=== PATIENT | female | born 1980 | race Caucasian/White ===

== ENCOUNTER 2018-07-24 14:07 | Emergency (ER) | payer MEDICAID, SELFPAY ==
[2018-07-24 14:11] VITALS: BP 142/91; PULSE 94; RESP 20; TEMP 36.2; O2SAT 100; BMI 32.2
--- NOTE | 2018-07-24 14:19 | DI.RAD.S_ITS ---
PROCEDURE: XR CHEST 1V INDICATIONS: chest pain TECHNIQUE: One view of the chest was acquired. COMPARISON: None. FINDINGS: Surgical changes and devices: None. Lungs and pleura: Lungs are clear. No pleural effusions or pneumothorax. Mediastinum: Mediastinal contours appear normal. Heart size is normal. Bones and chest wall: No suspicious bony lesions. Overlying soft tissues appear unremarkable. IMPRESSION: No acute disease. There are no imaging findings to explain patient's chest pain. Dictated by: Vic Chan M.D. on 07/24/2018 14:40 Approved by: Vic Chan M.D. on 07/24/2018 at 14:43
--- NOTE | 2018-07-24 14:28 | ED.CHESTPAIN ---
HPI - Chest Pain <Mayda Aguirre PA-C - Last Filed: 07/24/18 19:40> General Chief Complaint: Chest Pain Stated Complaint: pain in left side of chest and down arm Time Seen by Provider: 07/24/18 14:28 Source: patient Mode of arrival: ambulatory Limitations: no limitations History of Present Illness HPI narrative: This 38-year-old female comes to ED secondary to persistent left-sided chest and shoulder pain that started almost 20 hours ago. She states initially she thought this was acid reflux as she has that very frequently and is on Prilosec. She states that she took a warm bath which helped a little, but then got worse again around midnight despite taking her omeprazole. She states that pain is constant, at a low level if she is not lying on her left side, much worse lying on the left side. The pain is better lying flat or on her right side, sitting up or in any other position besides on her left side. It is not affected by walking. She states right now sitting up pain is mild, feels it more in her shoulder blade. She states that a couple of times last night she had some tingling and radiation of the pain into her left arm which resolved after she sat up. She states that she has chronic left neck and shoulder pain for about 6 years the, no specific source was found for that, states she was being evaluated for fibromyalgia when she lost her insurance. She denies any new trauma. She denies any pain or tingling in her arm or jaw currently. She denies any palpitations or dyspnea. She states that she has not had any recent illness or fever, but has been bringing up some solid postnasal drip in the morning with cough for the last couple of weeks. She states that she always has some upset stomach/nausea with her reflux and that is not changed today. She has not had any new vomiting. She has not had any pain or swelling in her extremities today, rashes, or other new symptoms on systems review. No family history of blood clots. She denies possibility of (abstinent) Related Data Home Medications Medication Instructions Recorded Confirmed omeprazole 07/24/18 Previous Rx's Medication Instructions Recorded cyclobenzaprine 10 mg PO TID #10 tab 07/24/18 lidocaine [Lidoderm] 2 patch TOP DAILY #30 each 07/24/18 meloxicam 15 mg PO DAILY #10 tab 07/24/18 Allergies Allergy/AdvReac Type Severity Reaction Status Date / Time Penicillins Allergy Severe Difficulty Verified 07/24/18 16:04 Breathing SULFA Allergy Intermediate hives Uncoded 07/18/17 12:24 Review of Systems <Mayda Aguirre PA-C - Last Filed: 07/24/18 19:40> Review of Systems ROS Unobtainable: All systems reviewed & are unremarkable except as noted in HPI and below PFSH <Mayda Aguirre PA-C - Last Filed: 07/24/18 19:40> Medical History (Updated 07/24/18 @ 17:17 by Mayda Aguirre PA-C) Chronic neck and back pain (Chronic) GERD (gastroesophageal reflux disease) (Chronic) Surgical History (Updated 07/24/18 @ 14:49 by Mayda Aguirre PA-C) H/O colonoscopy with polypectomy (Resolved) Family History (Updated 07/24/18 @ 14:49 by Mayda Aguirre PA-C) Mother Congestive heart failure Diabetes mellitus Social History Smoking Status: Former smoker Family History (Updated 07/24/18 @ 14:49 by Mayda Aguirre PA-C) Mother Congestive heart failure Diabetes mellitus Social History Smoking Status: Former smoker Exam <Mayda Aguirre PA-C - Last Filed: 07/24/18 19:40> Narrative Exam Narrative: GENERAL APPEARANCE: Patient sitting comfortably, in no distress. HEENT: PERRL, EOMI NECK/THYROID: Neck supple, no JVD. LUNGS: Clear to auscultation bilaterally. CHEST: TTP over L. lateral ribs/axilla HEART: Regular rate and rhythm without murmur, normal S1, S2, no S3 or S4. ABDOMEN: Soft, NT, ND, + BS x 4 quadrants EXTREMITIES: No cyanosis or edema. No calf tenderness NEUROLOGIC: Alert and oriented, normal speech and coordination. DERM: No exanthem MUSCULOSKELETAL: No point tenderness over the cervical or thoracic spine. Tender over the left-sided neck paraspinal musculature, trapezius and left ribs. Moderate tenderness with shoulder range of motion Initial Vital Signs Initial Vital Signs: Vital Signs Temperature 97.1 F L 07/24/18 14:11 Pulse Rate 94 H 07/24/18 14:11 Respiratory Rate 20 07/24/18 14:11 Blood Pressure 142/91 H 07/24/18 14:11 Pulse Oximetry 100 07/24/18 14:11 <Shala Roberts DO - Last Filed: 07/25/18 08:58> Initial Vital Signs Initial Vital Signs: Vital Signs Temperature 97.1 F L 07/24/18 14:11 Pulse Rate 94 H 07/24/18 14:11 Respiratory Rate 20 07/24/18 14:11 Blood Pressure 142/91 H 07/24/18 14:11 Pulse Oximetry 100 07/24/18 14:11 Course <Mayda Aguirre PA-C - Last Filed: 07/24/18 19:40> Additional Information: The patient is feeling significantly improved after medications. Suspect her pain is musculoskeletal. She agreed to return if she has acutely worsening symptoms, otherwise will follow up with her PCP this week as she has significant chronic pain and severe reflux Orders Ordered: Discontinued Medications Al Hydrox/Mg Hydrox/Simethicone 20 ml/ Lidocaine HCl 15 ml 0 ml PO NOW ONE Stop: 07/24/18 16:00 Last Admin: 07/24/18 16:16 Dose: 30 ml Ketorolac Tromethamine (Toradol) 30 mg IV NOW ONE Stop: 07/24/18 16:00 Last Admin: 07/24/18 16:16 Dose: 30 mg Ondansetron HCl (Zofran) 4 mg IV NOW ONE Stop: 07/24/18 16:00 Last Admin: 07/24/18 16:16 Dose: 4 mg Vital Signs - 8 hr 07/24/18 14:11 07/24/18 15:00 07/24/18 16:32 Temperature 97.1 F L Pulse Rate 94 H 101 H 77 Respiratory Rate 20 13 23 Blood Pressure 142/91 H Blood Pressure [Left Arm] 149/91 H 127/86 Pulse Oximetry 100 100 98 07/24/18 17:00 Temperature Pulse Rate 82 Respiratory Rate 21 Blood Pressure Blood Pressure [Left Arm] 131/86 Pulse Oximetry 97 <Shala Roberts DO - Last Filed: 07/25/18 08:58> Orders Ordered: Discontinued Medications Al Hydrox/Mg Hydrox/Simethicone 20 ml/ Lidocaine HCl 15 ml 0 ml PO NOW ONE Stop: 07/24/18 16:00 Last Admin: 07/24/18 16:16 Dose: 30 ml Ketorolac Tromethamine (Toradol) 30 mg IV NOW ONE Stop: 07/24/18 16:00 Last Admin: 07/24/18 16:16 Dose: 30 mg Ondansetron HCl (Zofran) 4 mg IV NOW ONE Stop: 07/24/18 16:00 Last Admin: 07/24/18 16:16 Dose: 4 mg Vital Signs - 8 hr 07/24/18 14:11 07/24/18 15:00 07/24/18 16:32 Temperature 97.1 F L Pulse Rate 94 H 101 H 77 Respiratory Rate 20 13 23 Blood Pressure 142/91 H Blood Pressure [Left Arm] 149/91 H 127/86 Pulse Oximetry 100 100 98 07/24/18 17:00 Temperature Pulse Rate 82 Respiratory Rate 21 Blood Pressure Blood Pressure [Left Arm] 131/86 Pulse Oximetry 97 MDM - Chest Pain <Mayda Aguirre PA-C - Last Filed: 07/24/18 19:40> Lab Data Result diagrams: 07/24/18 15:20 07/24/18 15:20 Lab Results 07/24/18 07/24/18 07/24/18 Range/Units 15:20 15:20 15:20 WBC 11.6 H (4.5-11.0) X10^3/uL RBC 5.29 H (4.0-5.2) X10^6/uL Hgb 15.4 (12.0-16.0) g/dL Hct 46.6 H (36-46) % MCV 88.0 (80-100) fL MCH 29.1 (26-34) PG MCHC 33.0 (30-36) % RDW 12.9 (11.6-14.8) % Plt Count 273 (150-400) X10^3/uL Neut % (Auto) 83.5 H (50-75) % Lymph % (Auto) 10.6 L (25-40) % Kimball % (Auto) 4.4 (3-14) % Eos % (Auto) 0.6 L (2-4) % Baso % (Auto) 0.9 (0-2) % Neut # (Auto) 9700 H (9763-9322) /uL Lymph # (Auto) 1200 (7283-5864) /uL Kimball # (Auto) 500 (0-900) /uL Eos # (Auto) 100 (0-450) /uL Baso # (Auto) 100 (0-100) /uL PT 11.5 (10.1-12.7) SECONDS INR 1.0 (0.9-1.3) APTT 34 (26.4-36.2) SECONDS Sodium 140 (137-145) mmol/L Potassium 4.0 (3.4-5.1) mmol/L Chloride 106 (98-107) mmol/L Carbon Dioxide 22 (22-32) mmol/L BUN 7 (7-17) mg/dL Creatinine 0.60 (0.52-1.04) mg/dL Estimated GFR > 60.0 (>60) mL/min BUN/Creatinine Ratio 11.7 (6-22) Glucose 120 H (70-100) mg/dL Calcium 9.9 (8.4-10.2) mg/dL Total Bilirubin 0.3 (0.2-1.3) mg/dL AST 19 (14-36) IU/L ALT 21 (9-52) IU/L Alkaline Phosphatase 78 (38-126) U/L Total Creatine Kinase 49 (30-135) U/L CK-MB (CK-2) TNP CK-MB (CK-2) Rel Index TNP Troponin I < 0.012 (0.01-0.034) ng/mL Total Protein 8.4 H (6.3-8.2) g/dL Albumin 5.1 H (3.5-5.0) g/dL Globulin 3.3 (1.7-4.1) g/dL Albumin/Globulin Ratio 1.5 (1.0-2.8) Lipase 59 (23-300) U/L Urine RBC (0-5/HPF) Urine WBC (0-5/HPF) Ur Squamous Epith Cells (0-5/HPF) Urine Bacteria (None) Ur Culture Indicated? 07/24/18 Range/Units 15:30 WBC (4.5-11.0) X10^3/uL RBC (4.0-5.2) X10^6/uL Hgb (12.0-16.0) g/dL Hct (36-46) % MCV (80-100) fL MCH (26-34) PG MCHC (30-36) % RDW (11.6-14.8) % Plt Count (150-400) X10^3/uL Neut % (Auto) (50-75) % Lymph % (Auto) (25-40) % Kimball % (Auto) (3-14) % Eos % (Auto) (2-4) % Baso % (Auto) (0-2) % Neut # (Auto) (7997-1532) /uL Lymph # (Auto) (2075-4720) /uL Kimball # (Auto) (0-900) /uL Eos # (Auto) (0-450) /uL Baso # (Auto) (0-100) /uL PT (10.1-12.7) SECONDS INR (0.9-1.3) APTT (26.4-36.2) SECONDS Sodium (137-145) mmol/L Potassium (3.4-5.1) mmol/L Chloride (98-107) mmol/L Carbon Dioxide (22-32) mmol/L BUN (7-17) mg/dL Creatinine (0.52-1.04) mg/dL Estimated GFR (>60) mL/min BUN/Creatinine Ratio (6-22) Glucose (70-100) mg/dL Calcium (8.4-10.2) mg/dL Total Bilirubin (0.2-1.3) mg/dL AST (14-36) IU/L ALT (9-52) IU/L Alkaline Phosphatase (38-126) U/L Total Creatine Kinase (30-135) U/L CK-MB (CK-2) CK-MB (CK-2) Rel Index Troponin I (0.01-0.034) ng/mL Total Protein (6.3-8.2) g/dL Albumin (3.5-5.0) g/dL Globulin (1.7-4.1) g/dL Albumin/Globulin Ratio (1.0-2.8) Lipase (23-300) U/L Urine RBC 0-1/hpf (0-5/HPF) Urine WBC 1-5/hpf (0-5/HPF) Ur Squamous Epith Cells 1-5 /hpf (0-5/HPF) Urine Bacteria Occasional (0-1) (None) Ur Culture Indicated? Specimen cultured Point of Care Testing Test Results Negative Urine Dip Bedside Urine Glucose Negative Bedside Urine Bilirubin - Negative Bedside Urine Ketone ++ 40 Urine Specific Tomball 1.015 Bedside Urine Occult Blood - Negative Bedside Urine pH 8.5 Bedside Urine Protein - Negative Bedside Urine Urobilinogen - Negative Bedside Urine Nitrite - Negative Bedside Urine Leukocytes ++ 125 Esterase Imaging Data Chest x-ray: Radiologist's impression: [address] [id number] XRay Report Signed Patient: Gabby Flores LMR#: [id number] : 1980Acct:[id number] Age/Sex: 38 / FDate of Service: 07/24/18 Loc: ED Accession Number: [id number] Procedure: XR chest 1V Ordering Provider: Shaal Roberts D.O. PROCEDURE: XR CHEST 1V INDICATIONS: chest pain TECHNIQUE: One view of the chest was acquired. COMPARISON: None. FINDINGS: Surgical changes and devices: None. Lungs and pleura: Lungs are clear. No pleural effusions or pneumothorax. Mediastinum: Mediastinal contours appear normal. Heart size is normal. Bones and chest wall: No suspicious bony lesions. Overlying soft tissues appear unremarkable. IMPRESSION: No acute disease. There are no imaging findings to explain patient's chest pain. Dictated by: Vic Chan M.D. on 07/24/2018 14:40 Approved by: Vic Chan M.D. on 07/24/2018 at 14:43 ECG Data Attestation: I personally reviewed and interpreted this ECG as follows: (Sinus rhythm, rate 95, DC 0.11, normal axis) <Shala Roberts DO - Last Filed: 07/25/18 08:58> Lab Data Attestation: I reviewed the patient's lab results. Lab Results 07/24/18 07/24/18 07/24/18 Range/Units 15:20 15:20 15:20 WBC 11.6 H (4.5-11.0) X10^3/uL RBC 5.29 H (4.0-5.2) X10^6/uL Hgb 15.4 (12.0-16.0) g/dL Hct 46.6 H (36-46) % MCV 88.0 (80-100) fL MCH 29.1 (26-34) PG MCHC 33.0 (30-36) % RDW 12.9 (11.6-14.8) % Plt Count 273 (150-400) X10^3/uL Neut % (Auto) 83.5 H (50-75) % Lymph % (Auto) 10.6 L (25-40) % Kimball % (Auto) 4.4 (3-14) % Eos % (Auto) 0.6 L (2-4) % Baso % (Auto) 0.9 (0-2) % Neut # (Auto) 9700 H (6725-0073) /uL Lymph # (Auto) 1200 (7671-5909) /uL Kimball # (Auto) 500 (0-900) /uL Eos # (Auto) 100 (0-450) /uL Baso # (Auto) 100 (0-100) /uL PT 11.5 (10.1-12.7) SECONDS INR 1.0 (0.9-1.3) APTT 34 (26.4-36.2) SECONDS Sodium 140 (137-145) mmol/L Potassium 4.0 (3.4-5.1) mmol/L Chloride 106 (98-107) mmol/L Carbon Dioxide 22 (22-32) mmol/L BUN 7 (7-17) mg/dL Creatinine 0.60 (0.52-1.04) mg/dL Estimated GFR > 60.0 (>60) mL/min BUN/Creatinine Ratio 11.7 (6-22) Glucose 120 H (70-100) mg/dL Calcium 9.9 (8.4-10.2) mg/dL Total Bilirubin 0.3 (0.2-1.3) mg/dL AST 19 (14-36) IU/L ALT 21 (9-52) IU/L Alkaline Phosphatase 78 (38-126) U/L Total Creatine Kinase 49 (30-135) U/L CK-MB (CK-2) TNP CK-MB (CK-2) Rel Index TNP Troponin I < 0.012 (0.01-0.034) ng/mL Total Protein 8.4 H (6.3-8.2) g/dL Albumin 5.1 H (3.5-5.0) g/dL Globulin 3.3 (1.7-4.1) g/dL Albumin/Globulin Ratio 1.5 (1.0-2.8) Lipase 59 (23-300) U/L Urine RBC (0-5/HPF) Urine WBC (0-5/HPF) Ur Squamous Epith Cells (0-5/HPF) Urine Bacteria (None) Ur Culture Indicated? 07/24/18 Range/Units 15:30 WBC (4.5-11.0) X10^3/uL RBC (4.0-5.2) X10^6/uL Hgb (12.0-16.0) g/dL Hct (36-46) % MCV (80-100) fL MCH (26-34) PG MCHC (30-36) % RDW (11.6-14.8) % Plt Count (150-400) X10^3/uL Neut % (Auto) (50-75) % Lymph % (Auto) (25-40) % Kimball % (Auto) (3-14) % Eos % (Auto) (2-4) % Baso % (Auto) (0-2) % Neut # (Auto) (6983-5863) /uL Lymph # (Auto) (0240-0746) /uL Kimball # (Auto) (0-900) /uL Eos # (Auto) (0-450) /uL Baso # (Auto) (0-100) /uL PT (10.1-12.7) SECONDS INR (0.9-1.3) APTT (26.4-36.2) SECONDS Sodium (137-145) mmol/L Potassium (3.4-5.1) mmol/L Chloride (98-107) mmol/L Carbon Dioxide (22-32) mmol/L BUN (7-17) mg/dL Creatinine (0.52-1.04) mg/dL Estimated GFR (>60) mL/min BUN/Creatinine Ratio (6-22) Glucose (70-100) mg/dL Calcium (8.4-10.2) mg/dL Total Bilirubin (0.2-1.3) mg/dL AST (14-36) IU/L ALT (9-52) IU/L Alkaline Phosphatase (38-126) U/L Total Creatine Kinase (30-135) U/L CK-MB (CK-2) CK-MB (CK-2) Rel Index Troponin I (0.01-0.034) ng/mL Total Protein (6.3-8.2) g/dL Albumin (3.5-5.0) g/dL Globulin (1.7-4.1) g/dL Albumin/Globulin Ratio (1.0-2.8) Lipase (23-300) U/L Urine RBC 0-1/hpf (0-5/HPF) Urine WBC 1-5/hpf (0-5/HPF) Ur Squamous Epith Cells 1-5 /hpf (0-5/HPF) Urine Bacteria Occasional (0-1) (None) Ur Culture Indicated? Specimen cultured Point of Care Testing Test Results Negative Urine Dip Bedside Urine Glucose Negative Bedside Urine Bilirubin - Negative Bedside Urine Ketone ++ 40 Urine Specific Tomball 1.015 Bedside Urine Occult Blood - Negative Bedside Urine pH 8.5 Bedside Urine Protein - Negative Bedside Urine Urobilinogen - Negative Bedside Urine Nitrite - Negative Bedside Urine Leukocytes ++ 125 Esterase ECG Data Attestation: I personally reviewed and interpreted this ECG as follows: Prior ECG tracings: not available for review Interpretation: Normal sinus rhythm rate 95 as needed [place] [address] changes QTC 434 Discharge Plan Departure Patient Disposition: Home Clinical Impression: Atypical chest pain, Gastroesophageal reflux disease with esophagitis Discharge Date/Time: 07/24/18 17:33 Interventions: ED Discharge Assessment Last Done: 07/24/18 17:32 Instructions: DI for Gastroesophageal Reflux Disease (GERD), DI for Atypical Chest Pain, DI for Chest Pain Activity Restrictions/Additional Instructions: Please return as we talked about if you have acutely worsening symptoms again, or new symptoms such as difficulty breathing fever or swelling in her extremities. Otherwise, please avoid sleeping on your left side (prop yourself up). Take your omeprazole every day about 45 minutes prior to dinner, starting tonight. 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 Start the once daily anti-inflammatory meloxicam to help with pain since the medicine that we gave you here seem to be helpful (it is related to this) instead of ibuprofen. Also try the lidocaine patches as well as cyclobenzaprine, which is a muscle relaxant. That may help your muscle tightness and spasm that you described as well as help with sleep. Remember that it can make you sleepy and not to drive. Please follow-up with your PCP in the next couple of days to assess your progress. Prescriptions: New cyclobenzaprine 10 mg tablet 10 mg PO TID Qty: 10 RF: 0 meloxicam 15 mg tablet 15 mg PO DAILY Qty: 10 RF: 0 lidocaine [Lidoderm] 5 % adhesive patch,medicated 2 patch TOP DAILY Qty: 30 RF: 0 No Action omeprazole 40 mg capsule,delayed release(DR/EC) RF: 0 Referrals: Rosalia Galan ARNP [Non-Staff] - <Shala Roberts DO - Last Filed: 07/25/18 08:58> Cosign ED Attending Barbaraature Attestation: I was immediately available in the department for consultation. Documentation has been reviewed. I agree with assessment and plan.
--- NOTE | 2018-07-24 14:52 | ED_ITS ---
HPI - Chest Pain <Mayda Aguirre PA-C - Last Filed: 07/24/18 19:40> General Chief Complaint: Chest Pain Stated Complaint: pain in left side of chest and down arm Time Seen by Provider: 07/24/18 14:28 Source: patient Mode of arrival: ambulatory Limitations: no limitations History of Present Illness HPI narrative: This 38-year-old female comes to ED secondary to persistent left- sided chest and shoulder pain that started almost 20 hours ago. She states initially she thought this was acid reflux as she has that very frequently and is on Prilosec. She states that she took a warm bath which helped a little, but then got worse again around midnight despite taking her omeprazole. She states that pain is constant, at a low level if she is not lying on her left side, much worse lying on the left side. The pain is better lying flat or on her right side, sitting up or in any other position besides on her left side. It is not affected by walking. She states right now sitting up pain is mild, feels it more in her shoulder blade. She states that a couple of times last night she had some tingling and radiation of the pain into her left arm which resolved after she sat up. She states that she has chronic left neck and shoulder pain for about 6 years the, no specific source was found for that, states she was being evaluated for fibromyalgia when she lost her insurance. She denies any new trauma. She denies any pain or tingling in her arm or jaw currently. She denies any palpitations or dyspnea. She states that she has not had any recent illness or fever, but has been bringing up some solid postnasal drip in the morning with cough for the last couple of weeks. She states that she always has some upset stomach/nausea with her reflux and that is not changed today. She has not had any new vomiting. She has not had any pain or swelling in her extremities today, rashes, or other new symptoms on systems review. No family history of blood clots. She denies possibility of (abstinent) Related Data Home Medications Medication Instructions Recorded Confirmed omeprazole 07/24/18 Previous Rx's Medication Instructions Recorded cyclobenzaprine 10 mg PO TID #10 tab 07/24/18 lidocaine [Lidoderm] 2 patch TOP DAILY #30 each 07/24/18 meloxicam 15 mg PO DAILY #10 tab 07/24/18 Allergies Allergy/AdvReac Type Severity Reaction Status Date / Time Penicillins Allergy Severe Difficulty Verified 07/24/18 16:04 Breathing SULFA Allergy Intermediate hives Uncoded 07/18/17 12:24 Review of Systems <Mayda Aguirre PA-C - Last Filed: 07/24/18 19:40> Review of Systems ROS Unobtainable: All systems reviewed & are unremarkable except as noted in HPI and below PFSH <Mayda Aguirre PA-C - Last Filed: 07/24/18 19:40> Medical History (Updated 07/24/18 @ 17:17 by Mayda Aguirre PA-C) Chronic neck and back pain (Chronic) GERD (gastroesophageal reflux disease) (Chronic) Surgical History (Updated 07/24/18 @ 14:49 by Mayda Aguirre PA-C) H/O colonoscopy with polypectomy (Resolved) Family History (Updated 07/24/18 @ 14:49 by Mayda Aguirre PA-C) Mother Congestive heart failure Diabetes mellitus Social History Smoking Status: Former smoker Family History (Updated 07/24/18 @ 14:49 by Mayda Aguirre PA-C) Mother Congestive heart failure Diabetes mellitus Social History Smoking Status: Former smoker Exam <Mayda Aguirre PA-C - Last Filed: 07/24/18 19:40> Narrative Exam Narrative: GENERAL APPEARANCE: Patient sitting comfortably, in no distress. HEENT: PERRL, EOMI NECK/THYROID: Neck supple, no JVD. LUNGS: Clear to auscultation bilaterally. CHEST: TTP over L. lateral ribs/axilla HEART: Regular rate and rhythm without murmur, normal S1, S2, no S3 or S4. ABDOMEN: Soft, NT, ND, + BS x 4 quadrants EXTREMITIES: No cyanosis or edema. No calf tenderness NEUROLOGIC: Alert and oriented, normal speech and coordination. DERM: No exanthem MUSCULOSKELETAL: No point tenderness over the cervical or thoracic spine. Tender over the left-sided neck paraspinal musculature, trapezius and left ribs. Moderate tenderness with shoulder range of motion Initial Vital Signs Initial Vital Signs: Vital Signs Temperature 97.1 F L 07/24/18 14:11 Pulse Rate 94 H 07/24/18 14:11 Respiratory Rate 20 07/24/18 14:11 Blood Pressure 142/91 H 07/24/18 14:11 Pulse Oximetry 100 07/24/18 14:11 <Shala Roberts DO - Last Filed: 07/25/18 08:58> Initial Vital Signs Initial Vital Signs: Vital Signs Temperature 97.1 F L 07/24/18 14:11 Pulse Rate 94 H 07/24/18 14:11 Respiratory Rate 20 07/24/18 14:11 Blood Pressure 142/91 H 07/24/18 14:11 Pulse Oximetry 100 07/24/18 14:11 Course <Mayda Aguirre PA-C - Last Filed: 07/24/18 19:40> Additional Information: The patient is feeling significantly improved after medications. Suspect her pain is musculoskeletal. She agreed to return if she has acutely worsening symptoms, otherwise will follow up with her PCP this week as she has significant chronic pain and severe reflux Orders Ordered: Discontinued Medications Al Hydrox/Mg Hydrox/Simethicone 20 ml/ Lidocaine HCl 15 ml 0 ml PO NOW ONE Stop: 07/24/18 16:00 Last Admin: 07/24/18 16:16 Dose: 30 ml Ketorolac Tromethamine (Toradol) 30 mg IV NOW ONE Stop: 07/24/18 16:00 Last Admin: 07/24/18 16:16 Dose: 30 mg Ondansetron HCl (Zofran) 4 mg IV NOW ONE Stop: 07/24/18 16:00 Last Admin: 07/24/18 16:16 Dose: 4 mg Vital Signs - 8 hr 07/24/18 14:11 07/24/18 15:00 07/24/18 16:32 Temperature 97.1 F L Pulse Rate 94 H 101 H 77 Respiratory Rate 20 13 23 Blood Pressure 142/91 H Blood Pressure [Left Arm] 149/91 H 127/86 Pulse Oximetry 100 100 98 07/24/18 17:00 Temperature Pulse Rate 82 Respiratory Rate 21 Blood Pressure Blood Pressure [Left Arm] 131/86 Pulse Oximetry 97 <Shala Roberts DO - Last Filed: 07/25/18 08:58> Orders Ordered: Discontinued Medications Al Hydrox/Mg Hydrox/Simethicone 20 ml/ Lidocaine HCl 15 ml 0 ml PO NOW ONE Stop: 07/24/18 16:00 Last Admin: 07/24/18 16:16 Dose: 30 ml Ketorolac Tromethamine (Toradol) 30 mg IV NOW ONE Stop: 07/24/18 16:00 Last Admin: 07/24/18 16:16 Dose: 30 mg Ondansetron HCl (Zofran) 4 mg IV NOW ONE Stop: 07/24/18 16:00 Last Admin: 07/24/18 16:16 Dose: 4 mg Vital Signs - 8 hr 07/24/18 14:11 07/24/18 15:00 07/24/18 16:32 Temperature 97.1 F L Pulse Rate 94 H 101 H 77 Respiratory Rate 20 13 23 Blood Pressure 142/91 H Blood Pressure [Left Arm] 149/91 H 127/86 Pulse Oximetry 100 100 98 07/24/18 17:00 Temperature Pulse Rate 82 Respiratory Rate 21 Blood Pressure Blood Pressure [Left Arm] 131/86 Pulse Oximetry 97 MDM - Chest Pain <Mayda Aguirre PA-C - Last Filed: 07/24/18 19:40> Lab Data Result diagrams: 07/24/18 15:20 07/24/18 15:20 Lab Results 07/24/18 07/24/18 07/24/18 Range/Units 15:20 15:20 15:20 WBC 11.6 H (4.5-11.0) X10^3/uL RBC 5.29 H (4.0-5.2) X10^6/uL Hgb 15.4 (12.0-16.0) g/dL Hct 46.6 H (36-46) % MCV 88.0 (80-100) fL MCH 29.1 (26-34) PG MCHC 33.0 (30-36) % RDW 12.9 (11.6-14.8) % Plt Count 273 (150-400) X10^3/uL Neut % (Auto) 83.5 H (50-75) % Lymph % (Auto) 10.6 L (25-40) % [place] % (Auto) 4.4 (3-14) % Eos % (Auto) 0.6 L (2-4) % Baso % (Auto) 0.9 (0-2) % Neut # (Auto) 9700 H (5174-7729) /uL Lymph # (Auto) 1200 (4509-7853) /uL [place] # (Auto) 500 (0-900) /uL Eos # (Auto) 100 (0-450) /uL Baso # (Auto) 100 (0-100) /uL PT 11.5 (10.1-12.7) SECONDS INR 1.0 (0.9-1.3) APTT 34 (26.4-36.2) SECONDS Sodium 140 (137-145) mmol/L Potassium 4.0 (3.4-5.1) mmol/L Chloride 106 (98-107) mmol/L Carbon Dioxide 22 (22-32) mmol/L BUN 7 (7-17) mg/dL Creatinine 0.60 (0.52-1.04) mg/dL Estimated GFR > 60.0 (>60) mL/min BUN/Creatinine Ratio 11.7 (6-22) Glucose 120 H (70-100) mg/dL Calcium 9.9 (8.4-10.2) mg/dL Total Bilirubin 0.3 (0.2-1.3) mg/dL AST 19 (14-36) IU/L ALT 21 (9-52) IU/L Alkaline Phosphatase 78 (38-126) U/L Total Creatine Kinase 49 (30-135) U/L CK-MB (CK-2) TNP CK-MB (CK-2) Rel Index TNP Troponin I < 0.012 (0.01-0.034) ng/mL Total Protein 8.4 H (6.3-8.2) g/dL Albumin 5.1 H (3.5-5.0) g/dL Globulin 3.3 (1.7-4.1) g/dL Albumin/Globulin Ratio 1.5 (1.0-2.8) Lipase 59 (23-300) U/L Urine RBC (0-5/HPF) Urine WBC (0-5/HPF) Ur Squamous Epith Cells (0-5/HPF) Urine Bacteria (None) Ur Culture Indicated? 07/24/18 Range/Units 15:30 WBC (4.5-11.0) X10^3/uL RBC (4.0-5.2) X10^6/uL Hgb (12.0-16.0) g/dL Hct (36-46) % MCV (80-100) fL MCH (26-34) PG MCHC (30-36) % RDW (11.6-14.8) % Plt Count (150-400) X10^3/uL Neut % (Auto) (50-75) % Lymph % (Auto) (25-40) % [place] % (Auto) (3-14) % Eos % (Auto) (2-4) % Baso % (Auto) (0-2) % Neut # (Auto) (7163-2854) /uL Lymph # (Auto) (9164-9097) /uL [place] # (Auto) (0-900) /uL Eos # (Auto) (0-450) /uL Baso # (Auto) (0-100) /uL PT (10.1-12.7) SECONDS INR (0.9-1.3) APTT (26.4-36.2) SECONDS Sodium (137-145) mmol/L Potassium (3.4-5.1) mmol/L Chloride (98-107) mmol/L Carbon Dioxide (22-32) mmol/L BUN (7-17) mg/dL Creatinine (0.52-1.04) mg/dL Estimated GFR (>60) mL/min BUN/Creatinine Ratio (6-22) Glucose (70-100) mg/dL Calcium (8.4-10.2) mg/dL Total Bilirubin (0.2-1.3) mg/dL AST (14-36) IU/L ALT (9-52) IU/L Alkaline Phosphatase (38-126) U/L Total Creatine Kinase (30-135) U/L CK-MB (CK-2) CK-MB (CK-2) Rel Index Troponin I (0.01-0.034) ng/mL Total Protein (6.3-8.2) g/dL Albumin (3.5-5.0) g/dL Globulin (1.7-4.1) g/dL Albumin/Globulin Ratio (1.0-2.8) Lipase (23-300) U/L Urine RBC 0-1/hpf (0-5/HPF) Urine WBC 1-5/hpf (0-5/HPF) Ur Squamous Epith Cells 1-5 /hpf (0-5/HPF) Urine Bacteria Occasional (0-1) (None) Ur Culture Indicated? Specimen cultured Point of Care Testing Test Results Negative Urine Dip Bedside Urine Glucose Negative Bedside Urine Bilirubin - Negative Bedside Urine Ketone ++ 40 Urine Specific [place] 1.015 Bedside Urine Occult Blood - Negative Bedside Urine pH 8.5 Bedside Urine Protein - Negative Bedside Urine Urobilinogen - Negative Bedside Urine Nitrite - Negative Bedside Urine Leukocytes ++ 125 Esterase Imaging Data Chest x-ray: Radiologist's impression: [address] [address] XRay Report Signed Patient: Gabby Flores LMR#: [id number] : 1980Acct:[id number] Age/Sex: 38 / FDate of Service: 07/24/18 Loc: ED Accession Number: [id number] Procedure: XR chest 1V Ordering Provider: Shala Roberts D.O. PROCEDURE: XR CHEST 1V INDICATIONS: chest pain TECHNIQUE: One view of the chest was acquired. COMPARISON: None. FINDINGS: Surgical changes and devices: None. Lungs and pleura: Lungs are clear. No pleural effusions or pneumothorax. Mediastinum: Mediastinal contours appear normal. Heart size is normal. Bones and chest wall: No suspicious bony lesions. Overlying soft tissues appear unremarkable. IMPRESSION: No acute disease. There are no imaging findings to explain patient's chest pain. Dictated by: Vic Chan M.D. on 07/24/2018 14:40 Approved by: Vic Chan M.D. on 07/24/2018 at 14:43 ECG Data Attestation: I personally reviewed and interpreted this ECG as follows: (Sinus rhythm, rate 95, SC 0.11, normal axis) <Shala Roberts DO - Last Filed: 07/25/18 08:58> Lab Data Attestation: I reviewed the patient's lab results. Lab Results 07/24/18 07/24/18 07/24/18 Range/Units 15:20 15:20 15:20 WBC 11.6 H (4.5-11.0) X10^3/uL RBC 5.29 H (4.0-5.2) X10^6/uL Hgb 15.4 (12.0-16.0) g/dL Hct 46.6 H (36-46) % MCV 88.0 (80-100) fL MCH 29.1 (26-34) PG MCHC 33.0 (30-36) % RDW 12.9 (11.6-14.8) % Plt Count 273 (150-400) X10^3/uL Neut % (Auto) 83.5 H (50-75) % Lymph % (Auto) 10.6 L (25-40) % [place] % (Auto) 4.4 (3-14) % Eos % (Auto) 0.6 L (2-4) % Baso % (Auto) 0.9 (0-2) % Neut # (Auto) 9700 H (9582-5051) /uL Lymph # (Auto) 1200 (0115-7606) /uL [place] # (Auto) 500 (0-900) /uL Eos # (Auto) 100 (0-450) /uL Baso # (Auto) 100 (0-100) /uL PT 11.5 (10.1-12.7) SECONDS INR 1.0 (0.9-1.3) APTT 34 (26.4-36.2) SECONDS Sodium 140 (137-145) mmol/L Potassium 4.0 (3.4-5.1) mmol/L Chloride 106 (98-107) mmol/L Carbon Dioxide 22 (22-32) mmol/L BUN 7 (7-17) mg/dL Creatinine 0.60 (0.52-1.04) mg/dL Estimated GFR > 60.0 (>60) mL/min BUN/Creatinine Ratio 11.7 (6-22) Glucose 120 H (70-100) mg/dL Calcium 9.9 (8.4-10.2) mg/dL Total Bilirubin 0.3 (0.2-1.3) mg/dL AST 19 (14-36) IU/L ALT 21 (9-52) IU/L Alkaline Phosphatase 78 (38-126) U/L Total Creatine Kinase 49 (30-135) U/L CK-MB (CK-2) TNP CK-MB (CK-2) Rel Index TNP Troponin I < 0.012 (0.01-0.034) ng/mL Total Protein 8.4 H (6.3-8.2) g/dL Albumin 5.1 H (3.5-5.0) g/dL Globulin 3.3 (1.7-4.1) g/dL Albumin/Globulin Ratio 1.5 (1.0-2.8) Lipase 59 (23-300) U/L Urine RBC (0-5/HPF) Urine WBC (0-5/HPF) Ur Squamous Epith Cells (0-5/HPF) Urine Bacteria (None) Ur Culture Indicated? 07/24/18 Range/Units 15:30 WBC (4.5-11.0) X10^3/uL RBC (4.0-5.2) X10^6/uL Hgb (12.0-16.0) g/dL Hct (36-46) % MCV (80-100) fL MCH (26-34) PG MCHC (30-36) % RDW (11.6-14.8) % Plt Count (150-400) X10^3/uL Neut % (Auto) (50-75) % Lymph % (Auto) (25-40) % [place] % (Auto) (3-14) % Eos % (Auto) (2-4) % Baso % (Auto) (0-2) % Neut # (Auto) (9886-0734) /uL Lymph # (Auto) (6507-5209) /uL [place] # (Auto) (0-900) /uL Eos # (Auto) (0-450) /uL Baso # (Auto) (0-100) /uL PT (10.1-12.7) SECONDS INR (0.9-1.3) APTT (26.4-36.2) SECONDS Sodium (137-145) mmol/L Potassium (3.4-5.1) mmol/L Chloride (98-107) mmol/L Carbon Dioxide (22-32) mmol/L BUN (7-17) mg/dL Creatinine (0.52-1.04) mg/dL Estimated GFR (>60) mL/min BUN/Creatinine Ratio (6-22) Glucose (70-100) mg/dL Calcium (8.4-10.2) mg/dL Total Bilirubin (0.2-1.3) mg/dL AST (14-36) IU/L ALT (9-52) IU/L Alkaline Phosphatase (38-126) U/L Total Creatine Kinase (30-135) U/L CK-MB (CK-2) CK-MB (CK-2) Rel Index Troponin I (0.01-0.034) ng/mL Total Protein (6.3-8.2) g/dL Albumin (3.5-5.0) g/dL Globulin (1.7-4.1) g/dL Albumin/Globulin Ratio (1.0-2.8) Lipase (23-300) U/L Urine RBC 0-1/hpf (0-5/HPF) Urine WBC 1-5/hpf (0-5/HPF) Ur Squamous Epith Cells 1-5 /hpf (0-5/HPF) Urine Bacteria Occasional (0-1) (None) Ur Culture Indicated? Specimen cultured Point of Care Testing Test Results Negative Urine Dip Bedside Urine Glucose Negative Bedside Urine Bilirubin - Negative Bedside Urine Ketone ++ 40 Urine Specific [place] 1.015 Bedside Urine Occult Blood - Negative Bedside Urine pH 8.5 Bedside Urine Protein - Negative Bedside Urine Urobilinogen - Negative Bedside Urine Nitrite - Negative Bedside Urine Leukocytes ++ 125 Esterase ECG Data Attestation: I personally reviewed and interpreted this ECG as follows: Prior ECG tracings: not available for review Interpretation: Normal sinus rhythm rate 95 as needed [place] [address] changes QTC 434 Discharge Plan Departure Patient Disposition: Home Clinical Impression: Atypical chest pain, Gastroesophageal reflux disease with esophagitis Discharge Date/Time: 07/24/18 17:33 Interventions: ED Discharge Assessment Last Done: 07/24/18 17:32 Instructions: DI for Gastroesophageal Reflux Disease (GERD), DI for Atypical Chest Pain, DI for Chest Pain Activity Restrictions/Additional Instructions: Please return as we talked about if you have acutely worsening symptoms again, or new symptoms such as difficulty breathing fever or swelling in her extremities. Otherwise, please avoid sleeping on your left side (prop yourself up). Take your omeprazole every day about 45 minutes prior to dinner, starting tonight. 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 Start the once daily anti-inflammatory meloxicam to help with pain since the medicine that we gave you here seem to be helpful (it is related to this) instead of ibuprofen. Also try the lidocaine patches as well as cyclobenzaprine, which is a muscle relaxant. That may help your muscle tightness and spasm that you described as well as help with sleep. Remember that it can make you sleepy and not to drive. Please follow-up with your PCP in the next couple of days to assess your progress. Prescriptions: New cyclobenzaprine 10 mg tablet 10 mg PO TID Qty: 10 RF: 0 meloxicam 15 mg tablet 15 mg PO DAILY Qty: 10 RF: 0 lidocaine [Lidoderm] 5 % adhesive patch,medicated 2 patch TOP DAILY Qty: 30 RF: 0 No Action omeprazole 40 mg capsule,delayed release(DR/EC) RF: 0 Referrals: Rosalia Galan ARNP [Non-Staff] - <Shala Roberts DO - Last Filed: 07/25/18 08:58> Cosign ED Attending Barbaraature Attestation: I was immediately available in the department for consultation. Documentation has been reviewed. I agree with assessment and plan.
[2018-07-24 15:00] VITALS: BP 149/91; PULSE 101; RESP 13; O2SAT 100
[2018-07-24 15:30] LABS: Prothrombin Time 11.5 SECONDS (10.1-12.7)
[2018-07-24 15:33] LABS: PTT Partial Thromboplastin Tim 34 SECONDS (26.4-36.2)
[2018-07-24 15:38] LABS: Add Manual Diff / Slide Review NO; Basophils Absolute Auto 100 /uL (0-100); Basophils Percent Auto 0.9 % (0-2); Eosinophils Absolute Auto 100 /uL (0-450); Eosinophils Percent Auto 0.6 % (2-4); Hematocrit 46.6 % (36-46); Hemoglobin 15.4 g/dL (12.0-16.0); Lymphocytes Absolute Auto 1200 /uL (1100-4500); Lymphocytes Percent Auto 10.6 % (25-40); Mean Corpuscular Hemoglobin 29.1 PG (26-34); Monocytes Absolute Auto 500 /uL (0-900); Monocytes Percent Auto 4.4 % (3-14); Neutrophils Absolute Auto 9700 /uL (1500-7000); Neutrophils Percent Auto 83.5 % (50-75); Platelet Count 273 X10^3/uL (150-400); Red Blood Cell Count 5.29 X10^6/uL (4.0-5.2); Red Cell Distribution Width 12.9 % (11.6-14.8); White Blood Cell Count 11.6 X10^3/uL (4.5-11.0)
[2018-07-24 15:42] LABS: Alanine Aminotransferase 21 IU/L (9-52); Albumin 5.1 g/dL (3.5-5.0); Albumin Globulin Ratio 1.5 (1.0-2.8); Alkaline Phosphatase 78 U/L (38-126); Aspartate Aminotransferase 19 IU/L (14-36); BUN Creatinine Ratio 11.7 (6-22); Bilirubin Total 0.3 mg/dL (0.2-1.3); Blood Urea Nitrogen 7 mg/dL (7-17); Calcium 9.9 mg/dL (8.4-10.2); Carbon Dioxide 22 mmol/L (22-32); Chloride 106 mmol/L (98-107); Creatine Kinase 49 U/L (30-135); Estimated Glomerular Filt Rate > 60.0 mL/min (>60); Globulin 3.3 g/dL (1.7-4.1); Glucose 120 mg/dL (70-100); HEMOLYSIS < 15 (0-50); Lipase 59 U/L (23-300); Sodium 140 mmol/L (137-145); Total Protein 8.4 g/dL (6.3-8.2)
[2018-07-24 15:53] LABS: Troponin I < 0.012 ng/mL (0.01-0.034)
[2018-07-24] MEDS: ONDANSETRON 4 MG/2 ML INJ IV (16:16)
[2018-07-24] MEDS: KETOROLAC 60 MG/2 ML VIAL 30 MG IV (16:16)
[2018-07-24] MEDS: MAG HYDROX/ALUMINUM/SIMETH SUS 20 ML, LIDOCAINE VISCOUS 2% 15 ML PO (16:16)
[2018-07-24 16:32] VITALS: BP 127/86; PULSE 77; RESP 23; O2SAT 98
[2018-07-24 17:00] VITALS: BP 131/86; PULSE 82; RESP 21; O2SAT 97
[2018-07-24 18:04] LABS: Bacteria Urine Occasional (0-1); Culture Indicated Urine Specimen Cultured; RBC Urine 0-1/HPF (0-5/HPF); Squamous Epithelial Cell Urine 1-5 /HPF (0-5/HPF); WBC Urine 1-5/HPF (0-5/HPF)
== END 2018-07-24 17:33 | disposition home or self-care (01) ==
PROVIDERS: Emergency Medicine; Emergency Provider Internal Medicine
DX: R07.89 Other chest pain (principal); K21.0 Gastro-esophageal reflux disease with esophagitis; M25.512 Pain in left shoulder
CPT/HCPCS: 36591; 71045; 80053; 81003; 81015; 81025; 82550; 83690; 84484; 85025; 85610; 85730; 87086; 93005; 93010; 96374; 96375; 99283; 99285; J1885; J2405

== ENCOUNTER 2025-01-28 21:21 | Emergency (ER) | payer MEDICAID, SELFPAY ==
[2025-01-28 21:37] VITALS: BP 146/73; PULSE 91; RESP 19; TEMP 36.9; O2SAT 96; BMI 26.4
[2025-01-28 22:29] LABS: Culture Indicated Urine Cult Not Indicated
[2025-01-29] VITALS (8 sets, daily range): BP systolic 126–127; BP diastolic 71–83; PULSE 64–85; O2SAT 93–99
--- NOTE | 2025-01-29 00:50 | ED_ITS ---
HPI - Back Pain/Injury General Chief Complaint: Back Pain/Injury Stated Complaint: RT Side pain when breathing Time Seen by Provider: 01/29/25 00:45 Source: patient History of Present Illness HPI Narrative: 44-year-old female with intermittent right back pain and posterolaeral chest pain for the last 3 weeks, worse with insipration, wraps around anteriorly, seen 01/09/2025 walk-in clinic with x-ray reportedly negative, no other workup recalled. Second visits for the same problem. Worse discomfort with deep breathing and with any movements. No injury or trauma new activities. No change with food. Nausea or vomiting. No fevers or chills. Occasional cough. Related Data Home Medications ?Medication ?Instructions ?Recorded ?Confirmed omeprazole 40 mg capsule,delayed 07/24/18 release Previous Rx's ?Medication ?Instructions ?Recorded cyclobenzaprine 10 mg tablet 10 mg PO TID pain/muscle spasm #10 07/24/18 tabs lidocaine 5 % topical patch 2 patch topical DAILY 07/08 10/25 (Lidoderm) back/shoulder pain #30 ea meloxicam 15 mg tablet 15 mg PO DAILY shoulder/ches t pain 07/24/18 #10 tabs cyclobenzaprine 10 mg tablet 10 mg PO TID #20 tabs Allergies Allergy/AdvReac Type Severity Reaction Status Date / Time Penicillins Allergy Severe Difficulty Verified 01/28/25 21:37 Breathing SULFA Allergy Intermediate hives Uncoded 01/28/25 21:37 Patient History Medical History (Updated 01/29/25 @ 03:54 by Anant Martin MD) GERD (gastroesophageal reflux disease) Chronic neck and back pain Surgical History (Updated 07/24/18 @ 14:49 by Mayda Aguirre PA-C) H/O colonoscopy with polypectomy Family History (Updated 07/24/18 @ 14:49 by Mayda Aguirre PA-C) Mother Congestive heart failure Diabetes mellitus Social History Smoking Status: Never smoker Smoking Status: Never smoker alcohol intake frequency: 0-2 drinks per day Exam Narrative Exam Narrative: GENERAL: Well-developed patient, in mild distress. HEAD: Atraumatic. Normocephalic. EYES: Pupils equal round and reactive. Extraocular motions intact. No scleral icterus. No injection or drainage. ENT: Nose without bleeding, purulent drainage. Throat without erythema, tonsillar hypertrophy or exudate. Airway patent. NECK: Trachea midline. Non tender CARDIOVASCULAR: Regular rate and rhythm without murmurs, gallops, or rubs. RESPIRATORY: Clear to auscultation. Breath sounds equal bilaterally. No wheezes, rales, or rhonchi. GASTROINTESTINAL: Abdomen soft, non-tender, nondistended. EXTREMITIES: No edema or joint tenderness. BACK: Nontender without deformity or crepitance. No flank tenderness. NEURO: AOx3. Motor functions grossly nonfocal. SKIN: No rash or erythema of visible areas Initial Vital Signs Initial Vital Signs: Vital Signs Temperature 98.5 F 01/28/25 21:37 Pulse Rate 91 H 01/28/25 21:37 Respiratory Rate 19 01/28/25 21:37 Blood Pressure 146/73 H 01/28/25 21:37 Pulse Oximetry 96 01/28/25 21:37 Oxygen Delivery Method Room Air 01/28/25 21:37 Course Orders Ordered: Discontinued Medications Cyclobenzaprine HCl (Cyclobenzaprine 10 Mg Tablet) 10 mg PO NOW ONE Stop: 01/29/25 03:50 Last Admin: 01/29/25 04:02 Dose: 10 mg Documented By: Cyclobenzaprine HCl (Cyclobenzaprine 10 Mg Prepack) 1 bottle MISC DIRECTED ONE Stop: 01/29/25 03:50 Last Admin: 01/29/25 04:02 Dose: 1 bottle Documented By: Hydromorphone HCl (Hydromorphone Hcl 0.5 Mg/0.5 Ml Syringe) 0.5 mg IV NOW ONE Stop: 01/29/25 00:59 Last Admin: 01/29/25 01:10 Dose: 0.5 mg Documented By: GIOVANI Sodium Chloride (Normal Saline 0.9%) 1,000 mls @ 1,000 mls/hr IV BOLUS ONE Stop: 01/29/25 01:59 Last Infusion: 01/29/25 04:03 Dose: Infused Documented By: Admin: 01/29/25 01:09 Dose: 1,000 mls/hr Documented By: GIOVANI Methocarbamol (Methocarbamol 500 Mg Tablet) 500 mg PO NOW ONE Stop: 01/29/25 03:47 Ondansetron HCl (Ondansetron 4 Mg/2 Ml Inj) 4 mg IV NOW ONE Stop: 01/29/25 00:59 Last Admin: 01/29/25 01:10 Dose: 4 mg Documented By: GIOVANI Vital Signs Vital signs: Vital Signs - 8 hr 01/28/25 21:37 01/29/25 00:41 01/29/25 00:41 Temperature 98.5 F Pulse Rate 91 H 85 Respiratory Rate 19 Blood Pressure 146/73 H 127/71 Pulse Oximetry 96 98 Oxygen Delivery Method Room Air 01/29/25 01:04 Temperature Pulse Rate Respiratory Rate Blood Pressure Pulse Oximetry 98 Oxygen Delivery Method Room Air MDM - Back Pain/Injury Lab Data Attestation: I reviewed the patient's lab results. Lab results narrative: WBC 14, Hb 14, platelets adequate, BMP normal, liver functions and Lipase normal. UA negative. 01/29/25 01:00 01/29/25 01:00 Labs: Lab Results 01/28/25 01/29/25 Range/Units 21:45 01:00 WBC 14.2 H (4.5-11.0) X10^3/uL RBC 4.85 (4.0-5.2) X10^6/uL Hgb 14.3 (12.0-16.0) g/dL Hct 42.2 (36-46) % MCV 87.1 (80-100) fL MCH 29.5 (26-34) PG MCHC 33.9 (30-36) % RDW 13.3 (11.6-14.8) % Plt Count 232 (150-400) X10^3/uL Neut % (Auto) 81.1 H (50-75) % Lymph % (Auto) 12.4 L (25-40) % [place] % (Auto) 4.9 (3-14) % Eos % (Auto) 0.4 L (2-4) % Baso % (Auto) 1.2 (0-2) % Neut # (Auto) 94734 H (0841-4692) /uL Lymph # (Auto) 1800 (1381-9578) /uL [place] # (Auto) 700 (0-900) /uL Eos # (Auto) 100 (0-450) /uL Baso # (Auto) 200 H (0-100) /uL Sodium 139 (137-145) mmol/L Potassium 3.4 (3.4-5.1) mmol/L Chloride 101 (98-107) mmol/L Carbon Dioxide 27 (22-32) mmol/L BUN 13 (7-17) mg/dL Creatinine 0.90 (0.52-1.04) mg/dL Estimated GFR > 60 (>60) mL/min BUN/Creatinine Ratio 14.4 (6-22) Glucose 109 H (70-99) mg/dL Calcium 9.6 (8.4-10.2) mg/dL Total Bilirubin 0.4 (0.2-1.3) mg/dL AST 22 (14-36) IU/L ALT 20 (<35) IU/L Alkaline Phosphatase 97 (38-126) U/L Total Protein 8.0 (6.3-8.2) g/dL Albumin 5.0 (3.5-5.0) g/dL Globulin 3.0 (1.7-4.1) g/dL Albumin/Globulin Ratio 1.7 (1.0-2.8) Urine RBC 1-5/hpf (0-5/HPF) Urine WBC 1-5/hpf (0-5/HPF) Ur Squamous Epith Cells 0-1 /hpf (0-5/HPF) Urine Bacteria Occasional (0-1) (None) Ur Culture Indicated? Cult not indicated Vol Urine Centrifuged 10ml (spun) Urine Dip Bedside Urine Glucose Negative Bedside Urine Bilirubin - Negative Bedside Urine Ketone - Negative Urine Specific [place] 1.010 Bedside Urine Occult Blood - Negative Bedside Urine pH 7.0 Bedside Urine Protein - Negative Bedside Urine Urobilinogen - Negative Bedside Urine Nitrite - Negative Bedside Urine Leukocytes + 70 Esterase MDM Narrative Medical decision making narrative: 44 year old female with 3 weeks right flank and right posterolateral pleuritic chest pain, no cough, no hx DVT/PE, no dyspnea, no history kideny stones, had clinic CXR reportedly not showing any rib fractures or acute changes. DDx includes pneumonia, PTX, pleural effusion, empyema, PE, pyelo, hepatitis, duodenal ulcer, biliary, pancreatitis, occult rib fracture, other musculoskeletal, aortic dissection, renal vein thrombosis, other. Doubt ACS. Labs pending. Image CTA Chest and below diaphramg. Pt agrees. IV dilaudid. Will avoid Toradol for now if duodenal PUD possible. Lab data: WBC 14, Hb 14, platelets adequate, BMP normal, liver functions and Lipase normal. UA negative. CT angio chest PE protocol. Impressions: ?no pulmonary embolism or acute intrathoracic abnormality identified. ? See tele radiology report. CT abdomen and pelvis with IV contrast. Impressions: ?Unremarkable CT of the abdomen and pelvis. ? See tele radiology report Possible musculoskeletal, has been on cyclobenzaprine in the past, homepack given, Rx sent to her requested pharmacy. Re-check advised with PCP if not better next couple days. Return precautions discussed. DC home with family. Discharge Plan Departure Patient Disposition: Home Clinical Impression: Acute right flank pain Activity Restrictions/Additional Instructions: Right-sided flank pain, lateral chest upper abdominal discomfort of unclear etiology. No skin rash vesicles or bruising or cutaneous injuries obvious. Serum studies unremarkable. CT angiogram of the chest showed no blood clots to the lungs, or pneumonia or other acute thoracic changes. CT abdomen and pelvis showed no acute changes. No bony fractures, no rib fractures. Clinically suspect maybe this could be musculoskeletal, no other emergency conditions identified on imaging. Trial of muscle relaxant. You had been on cyclobenzaprine in the past, dose was given by mouth in the emergency department, home pack dispensed, prescription sent to your pharmacy. Continue taking meloxicam anti-inflammatory pain medication. Recheck symptoms with your regular doctor in next couple of days if not improved. Return to this/nearest emergency department for any change worsening symptoms or any concerns prior. Prescriptions: New cyclobenzaprine 10 mg tablet 10 mg PO TID Qty: 20 0RF No Action omeprazole 40 mg capsule,delayed release(DR/EC) cyclobenzaprine 10 mg tablet 10 mg PO TID Qty: 10 0RF Rx Instructions: do not drive meloxicam 15 mg tablet 15 mg PO DAILY Qty: 10 0RF lidocaine [Lidoderm] 5 % adhesive patch,medicated 2 patch TOP DAILY Qty: 30 0RF Rx Instructions: leave on most painful area for 12 hrs daily Stand Alone Forms: Patient Portal/API, Work Release Note
--- NOTE | 2025-01-29 00:57 | DI.CT.S_ITS ---
PROCEDURE: CT ANGIO CHEST PE PROTOCOL INDICATIONS: right pleuritic flank and RUQ pain TECHNIQUE: After the administration of intravenous contrast, 2 mm thick sections acquired from the pulmonary apices to the posterior costophrenic angles. 3-dimensional maximum intensity projection (MIP) coronal and sagittal reformats were then acquired through the thorax. For radiation dose reduction, the following was used: automated exposure control, adjustment of mA and/or kV according to patient size. COMPARISON: None. FINDINGS: Image quality: Lung apices are not included Lungs and pleura: No airspace consolidation or pleural effusion. Mild basal atelectasis. Mediastinum, heart, and esophagus: No acute pulmonary embolism. No significant esophageal abnormality by CT. No enlarged lymph nodes by size criteria. Overall normal heart size. Chest wall and thyroid: Thyroid is not seen within the field of view. Chest wall is unremarkable Upper abdomen: Separately dictated. Bones: There are degenerative osseous changes. No aggressive appearing osseous abnormality. IMPRESSION: No acute pulmonary embolus. No dense airspace disease or pleural effusion. Please note the far lung apices were not included on this study. No significant discrepancy from the preliminary report. Dictated by: Dean Saucedo M.D. on 01/29/2025 at 7:16 Approved by: Dean Saucedo M.D. on 01/29/2025 at 7:19
--- NOTE | 2025-01-29 00:58 | DI.CT.S_ITS ---
PROCEDURE: CT ABDOMEN PELVIS W CON INDICATIONS: RUQ/flank pain TECHNIQUE: After the administration of intravenous contrast, axial sections acquired from the lung bases to the pubic symphysis. Coronal and sagittal reformats were performed. For radiation dose reduction, the following was used: automated exposure control, adjustment of mA and/or kV according to patient size. COMPARISON: None. FINDINGS: Image quality: Diagnostic Lower chest: Chest findings are separately dictated. Liver: Unremarkable Gallbladder and biliary system: Unremarkable, nondilated Pancreas: No ductal dilation Spleen: Nonenlarged Adrenals: No discrete nodules Kidneys: No solid renal mass. No hydronephrosis. Vessels and lymph nodes: The main portal vein is patent. No abdominal aortic aneurysm. No enlarged lymph nodes identified by size criteria. Bowel and peritoneum: No acute bowel obstruction. No pathologic ascites. No drainable abscess Body wall: Small fat containing umbilical hernia Pelvis: Bladder is mildly distended. Reproductive organs are unremarkable on limited CT evaluation Bones: No aggressive appearing osseous abnormality IMPRESSION: No acute abdominal pelvic abnormality. Agree with preliminary report. Dictated by: Dean Saucedo M.D. on 01/29/2025 at 7:23 Approved by: Dean Saucedo M.D. on 01/29/2025 at 7:25
[2025-01-29] MEDS: SODIUM CHLORIDE 0.9% 1,000 ML 1000 ML IV (01:09)
[2025-01-29] MEDS: ONDANSETRON 4 MG/2 ML INJ IV (01:10)
[2025-01-29 01:23] LABS: Add Manual Diff / Slide Review NO; Hematocrit 42.2 % (36-46); Hemoglobin 14.3 g/dL (12.0-16.0); Lymphocytes Absolute Auto 1800 /uL (1100-4500); Mean Corpuscular HGB Conc 33.9 % (30-36); Mean Corpuscular Hemoglobin 29.5 PG (26-34); Mean Corpuscular Volume 87.1 fL (80-100); Platelet Count 232 X10^3/uL (150-400)
[2025-01-29 01:24] LABS: Alanine Aminotransferase 20 IU/L (<35); Albumin 5.0 g/dL (3.5-5.0); Albumin Globulin Ratio 1.7 (1.0-2.8); Alkaline Phosphatase 97 U/L (38-126); Blood Urea Nitrogen 13 mg/dL (7-17); Calcium 9.6 mg/dL (8.4-10.2); Carbon Dioxide 27 mmol/L (22-32); Chloride 101 mmol/L (98-107); Estimated Glomerular Filt Rate > 60 mL/min (>60); Globulin 3.0 g/dL (1.7-4.1); Glucose 109 mg/dL (70-99); HEMOLYSIS < 15 (0-50); Potassium 3.4 mmol/L (3.4-5.1); Sodium 139 mmol/L (137-145); Total Protein 8.0 g/dL (6.3-8.2)
[2025-01-29] MEDS: CYCLOBENZAPRINE 10 MG PREPACK 1 BOTTLE MISC (04:02)
[2025-01-29] MEDS: CYCLOBENZAPRINE 10 MG TABLET PO (04:02)
== END 2025-01-29 04:10 | disposition home or self-care (01) ==
PROVIDERS: Emergency Provider Emergency Medicine
DX: R10.A1 Flank pain, right side (principal)
CPT/HCPCS: 36415; 71275; 74177; 80053; 81003; 81015; 85025; 96361; 96374; 96375; 99284; J1171; J2405; J7030; Q9967